=== PATIENT | male | born 1975 | race African-American/Black ===

== ENCOUNTER 2019-02-16 01:36 | Inpatient (IN) | payer MEDICAID ==
[~2019-02-16] VITALS: Ht 175.3 cm; Wt 68.4 kg
[2019-02-16] MEDS ORDERED: SOD CHLORIDE 0.9% 1,000 ML IV STA ×2 (01:45)
[2019-02-16] MEDS ORDERED: ONDANSETRON 4 MG INJ IV STA ×2 (01:45→02:51)
[2019-02-16] MEDS ORDERED: HYDROmorphONE 1 MG/ML SYG IV STA (02:51)
[2019-02-16] MEDS ORDERED: hydrALAzine 20 MG INJ IV ONE (05:30)
[2019-02-16] MEDS ORDERED: SOD CHLORIDE 0.9% 1,000 ML IV SCH (05:36)
--- NOTE | 2019-02-16 05:36 | ERD ---
ER Documentation Chief Complaint Chief Complaint NAUSEA WITH VOMITING HPI This 43-year-old male has had nausea vomiting for 4 days unable to tolerate any fluids anymore. The patient got up to go to the kitchen to get some water and he got very dizzy nearly passed out. He says he used to have cyclical vomiting syndrome due to THC use but has not used THC in 2 years. He says he has diffuse abdominal pain but did not mention this until snf through his ER work-up. He told me had no pain initially. No diarrhea. Patient feels dizzy and weak and says he has had decreased urine output the past 2 days. ROS All systems reviewed and are negative except as per history of present illness. Medications Home Meds No Active Prescriptions or Reported Meds Allergies Allergies: Coded Allergies: No Known Allergy (Unverified , 12/20/14) PMhx/Soc History of Surgery: No Anesthesia Reaction: No Hx Neurological Disorder: No Hx Respiratory Disorders: No Hx Cardiac Disorders: No Hx Psychiatric Problems: No Hx Miscellaneous Medical Probl: Yes (Gastritis) Hx Alcohol Use: No Hx Substance Use: No Hx Tobacco Use: No Smoking Status: Current every day smoker FmHx Family History: No coronary disease Physical Exam Vitals Vital Signs Date Temp Pulse Resp B/P (MAP) Pulse Ox O2 O2 Flow FiO2 Time Delivery Rate 02/16/19 16 158/112 99 Room Air 05:18 (127) 02/16/19 97.8 127 22 98/65 (76) 100 Room Air 01:46 02/16/19 97.8 131 22 96/77 (83) 100 01:42 Physical Exam Const: Well-developed, well-nourished Head: Atraumatic, normocephalic Eyes: Normal Conjunctiva, PERRLA, EOMI, normal sclera, no nystagmus ENT: Normal External Ears, Nose and Mouth, dry mucus membranes. Neck: Full range of motion. No meningismus, no lymphadenopathy. Resp: Clear to auscultation bilaterally, no wheezing, rhonchi, rales Cardio: Tachycardia, no murmurs, S1 S2 present] Abd: Soft, non tender x 4, non distended. Normal bowel sounds, no guarding or rebound, no pulsitile abdominal masses or bruits Skin: No petechiae or rashes, no ecchymosis , no maculopapular rash Back: No midline or flank tenderness Ext: No cyanosis, or edema, FROM x 4, normal inspection, neurovascularly intact x 4 Neur: Awake and alert, STR 5/5 x 4, sensation intact x 4, no focal findings, cerebellum intact Psych: Normal Mood and Affect Result Diagram: 02/16/19 0412 02/16/19 0434 Results 24 hrs Laboratory Tests Test 02/16/19 04:12 02/16/19 04:34 White Blood Count 14.9 10^3/ul Red Blood Count 5.81 10^6/ul Hemoglobin 16.1 g/dl Hematocrit 47.2 % Mean Corpuscular Volume 81.2 fl Mean Corpuscular Hemoglobin 27.7 pg Mean Corpuscular Hemoglobin Concent 34.1 g/dl Red Cell Distribution Width 13.9 % Platelet Count 387 10^3/UL Mean Platelet Volume 9.2 fl Immature Granulocytes % 0.400 % Neutrophils % 87.3 % Lymphocytes % 7.4 % Monocytes % 4.7 % Eosinophils % 0.1 % Basophils % 0.1 % Nucleated Red Blood Cells % 0.0 /100WBC Immature Granulocytes # 0.060 10^3/ul Neutrophils # 13.0 10^3/ul Lymphocytes # 1.1 10^3/ul Monocytes # 0.7 10^3/ul Eosinophils # 0.0 10^3/ul Basophils # 0.0 10^3/ul Nucleated Red Blood Cells # 0.0 10^3/ul Sodium Level 137 mmol/L Potassium Level 3.9 mmol/L Chloride Level 99 mmol/L Carbon Dioxide Level 20 mmol/L Anion Gap 18 Blood Urea Nitrogen 35 mg/dl Creatinine 3.74 mg/dl Est Glomerular Filtrat Rate mL/min 22 mL/min Glucose Level 122 mg/dl Calcium Level 8.6 mg/dl Total Bilirubin 0.5 mg/dl Direct Bilirubin 0.00 mg/dl Indirect Bilirubin 0.5 mg/dl Aspartate Amino Transf (AST/SGOT) 18 IU/L Alanine Aminotransferase (ALT/SGPT) < 6 IU/L Alkaline Phosphatase 118 IU/L Total Protein 9.3 g/dl Albumin 4.9 g/dl Globulin 4.40 g/dl Albumin/Globulin Ratio 1.11 Current Medications Medications Dose Sig/Ryann Start Time Status Last (Trade) Ordered Route PRN Stop Time Admin Dose Reason Admin Sodium 1,000 ml @ Q1H STAT 02/16/19 DC 02/16/19 Chloride 1,000 mls/hr IV 01:45 02:27 02/16/19 02:44 Ondansetron 4 mg ONCE STAT 02/16/19 DC 02/16/19 HCl (Zofran IV 01:45 02:27 Inj) 02/16/19 01:47 Sodium 1,000 ml @ Q1H STAT 02/16/19 DC 02/16/19 Chloride 1,000 mls/hr IV 01:45 02:27 02/16/19 02:44 1 mg ONCE STAT 02/16/19 DC 02/16/19 Hydromorphone IV 02:51 02:57 HCl 02/16/19 02:52 (Dilaudid) Ondansetron 4 mg ONCE STAT 02/16/19 DC 02/16/19 HCl (Zofran IV 02:51 02:57 Inj) 02/16/19 02:52 Hydralazine 10 mg ONCE ONCE 02/16/19 DC 02/16/19 HCl IV 05:30 05:26 (Apresoline) 02/16/19 05:31 Procedures/MDM EKG: Rate/Rhythm: Sinus tachycardia heart rate 127 QRS, ST, QT: NORMAL MS, QRS, QT] Impression: Sinus tachycardia Patient is elevated creatinine at 3.74 and a CO2 that is acidotic demonstrating dehydration. His blood pressure and heart rate of got better after IV fluids. He is clinic ally dehydrated. His CAT scan of the abdomen is been done is currently pending read which is taking forever. We will admit him for dehydration and intractable nausea vomiting Departure Diagnosis: Primary Impression: Dehydration Additional Impression: Vomiting Vomiting type: cyclical vomiting Vomiting Intractability: intractable Nausea presence: with nausea Qualified Codes: G43.A1 - Cyclical vomiting, intractable Condition: Stable MARY GUZMAN DO Feb 16, 2019 05:36
[2019-02-16] MEDS ORDERED: ACETAMINOPHEN 325 MG TAB PO PRN (06:00)
[2019-02-16] MEDS ORDERED: ONDANSETRON 4 MG INJ IV PRN (06:00)
[2019-02-16] MEDS ORDERED: HALOPERIDOL 5 MG INJ IV ONE (07:00)
[2019-02-16] MEDS ORDERED: HYDROmorphONE 2 MG/ML SYG IV STA (09:29)
[2019-02-16 12:13] VITALS: PULSE 119
[2019-02-16 12:51] VITALS: BP 136/91; PULSE 120; RESP 20
[2019-02-16] MEDS ORDERED: CIPROFLOXACIN 200 MG/D5W IVPB 100 ML IVPB SCH (13:00)
[2019-02-16] MEDS ORDERED: BISACODYL 10 MG SUPP PR ONE (13:00)
--- NOTE | 2019-02-16 13:08 | HP ---
Date/Time of Note Date/Time of Note DATE: 02/16/19 TIME: 13:02 Assessment/Plan VTE Prophylaxis SCD applied (from Nsg): Yes Pharmacological prophylaxis: NA/contraindicated Pharm contraindication: low risk/ambulating Lines/Catheters IV Catheter Type (from Nrsg): Saline Lock Assessment/Plan Hospital Course SUBJECTIVE: Lying in bed, feeling nauseated and having abdominal pain. OBJECTIVE: Vital signs-see below PHYSICAL EXAM: Constitutional: Adequately built,not in acute distress. HEENT: Head atraumatic and normocephalic. Eyes: Extraocular muscles intact. Anicteric sclerae. Pupils equal bilaterally, reactive to light. NECK: Supple without lymph node. CHEST: Clear and good breath sounds equally. No wheezing. No rhonchi. HEART: S1, S2. Regular rate and rhythm. ABDOMEN: Generalized tenderness to all 4 quadrants with no rebound tenderness. Abdomen soft. Bowel sounds were present. EXTREMITIES: No cyanosis, clubbing or edema. NEUROLOGIC: Alert and oriented x3. No focal deficit. No sensory deficit. PSYCHOSOCIAL: No signs of depression. INTEGUMENTARY: No open wounds. ASSESSMENT AND PLAN:43 yo M w/daily cannabis use, hernia repair sx here w/ 4-5 days duration of intractable N/Vomiting/abd pain/chills/constipation found to have colitis.. Acute colitis -Last colonoscopy unknown. -GI consult -N.p.o., IV fluids, Unasyn/Flagyl (wouldn't give cipro w/current renal fxn) -Blood cultures, inflammatory markers Acute kidney injury vs CKD -Renal ultrasound. -Avoid nephrotoxins and monitor renal function closely. -nephrology consultation Dehydration -IV fluids Leukocytosis, likely secondary to colitis -Antibiotics with anaerobic coverage, cultures to follow Cannabis use w/hx cyclic vomiting chondrome -Counseled on cessation as this also can further exaggerate N/V DVT prophylaxis: SCDs PUD prophylaxis: Pepcid Rest of the management depend on clinical course. Approximately 60 m spent on this history and physical. Patient was seen in collaboration with Dr. Medina. Result Diagram: 02/16/19 0412 02/16/19 0434 Results 24hrs Laboratory Tests Test 02/16/19 04:12 02/16/19 04:34 White Blood Count 14.9 H Red Blood Count 5.81 Hemoglobin 16.1 Hematocrit 47.2 Mean Corpuscular Volume 81.2 L Mean Corpuscular Hemoglobin 27.7 L Mean Corpuscular Hemoglobin Concent 34.1 Red Cell Distribution Width 13.9 Platelet Count 387 Mean Platelet Volume 9.2 Immature Granulocytes % 0.400 Neutrophils % 87.3 H Lymphocytes % 7.4 L Monocytes % 4.7 Eosinophils % 0.1 Basophils % 0.1 Nucleated Red Blood Cells % 0.0 Immature Granulocytes # 0.060 H Neutrophils # 13.0 H Lymphocytes # 1.1 Monocytes # 0.7 Eosinophils # 0.0 Basophils # 0.0 Nucleated Red Blood Cells # 0.0 Sodium Level 137 Potassium Level 3.9 Chloride Level 99 Carbon Dioxide Level 20 L Anion Gap 18 H Blood Urea Nitrogen 35 H Creatinine 3.74 H Est Glomerular Filtrat Rate mL/min 22 L Glucose Level 122 Calcium Level 8.6 Total Bilirubin 0.5 Direct Bilirubin 0.00 Indirect Bilirubin 0.5 Aspartate Amino Transf (AST/SGOT) 18 Alanine Aminotransferase (ALT/SGPT) < 6 L Alkaline Phosphatase 118 Total Protein 9.3 H Albumin 4.9 Globulin 4.40 H Albumin/Globulin Ratio 1.11 HPI/ROS Admit Date/Time Admit Date/Time Feb 16, 2019 at 05:37 Hx of Present Illness This is a 43-year-old male with cannabis abuse, hernia repair surgery, here with 4 days of intractable nausea/multiple episodes of nonbilious/nonbloody vomiting. Patient also had subjective chills at home. Patient also had diffuse abdominal pain. He also reported constipation and his last bowel movement was 5 days ago. Patient was not able to keep anything down secondary to vomiting. Patient also smokes marijuana on a daily basis. Patient denied any recent travel or contact with sick people. Patient denied chest pain, palpitation, shortness of breath, diarrhea, hematemesis, hematochezia, loss of consciousness, numbness, tingling, speech difficulties, vision changes, or other constitutional symptoms. In the emergency room, patient was noted with a white count 14,900, BUN 35, creatinine 3.74. Abdominal CT showed mild bowel wall thickening in the descending and proximal sigmoid colon which could represent colitis, either infectious or inflammatory. There is also moderate stool seen in the ascending colon. ROS A 12 point review of system was assessed and is negative other than what is mentioned in HPI. PMH/Family/Social Past Medical History See HPI Medications Current Medications Ondansetron HCl (Zofran Inj) 4 mg ER BRIDGE PRN IV NAUSEA/VOMITING; Start 02/16/19 at 06:00; Stop 02/17/19 at 05:59 Acetaminophen (Tylenol Tab) 650 mg ER BRIDGE PRN PO .MILD PAIN 1-3 OR TEMP; Start 02/16/19 at 06:00; Stop 02/17/19 at 05:59 Ciprofloxacin/ Dextrose 100 ml @ 100 mls/hr Q12 IVPB ; Start 02/16/19 at 13:00; Status UNV Metronidazole 100 ml @ 100 mls/hr Q8 IVPB ; Start 02/16/19 at 14:00; Status UNV Bisacodyl (Dulcolax Supp) 10 mg ONCE ONCE AK ; Start 02/16/19 at 13:00; Stop 02/16/19 at 13:01; Status UNV Sodium Chloride 1,000 ml @ 125 mls/hr Q8H IV ; Start 02/16/19 at 13:00; Status UNV Coded Allergies: No Known Allergy (Unverified , 02/16/19) Past Surgical History See HPI Social History Smokes marijuana daily. Denies alcohol or substance abuse. Smoking Status: Current every day smoker Exam/Review of Systems Vital Signs Vitals Vital Signs Date Temp Pulse Resp B/P (MAP) Pulse Ox O2 O2 Flow FiO2 Time Delivery Rate 02/16/19 98.7 120 20 136/91 97 12:51 (106) 02/16/19 Room Air 11:17 MILAGROS LENTZ NP Feb 16, 2019 13:08
[2019-02-16 13:10] VITALS: Ht 175.3 cm; Wt 68.4 kg
--- NOTE | 2019-02-16 15:14 | CONS ---
Assessment/Plan Assessment/Plan Hospital Course (Demo Recall) Summary Assessment and Plan: Assessment: Colitis-infectious versus inflammatory Persistent Nausea/vomiting -Cyclic vomiting syndrome versus gastritis versus PUD versus other Abdominal pain Chronic marijuana use Unintentional weight loss 15 pounds x 1 to 2 weeks Renal insufficiency Plan: Clear liquid ESR/CRP IBD panel EGD/colonoscopy tomorrow Endoscopy - risks/benefits/alternatives/indications of procedure and sedation/anesthesia discussed with patient who states understanding and gives informed consent to proceed. Patient seen in collaboration with Dr. Hall CC: ELVIRA HALL MD ; Consultation Date/Type/Reason Admit Date/Time Feb 16, 2019 at 05:37 Date of Consultation: Feb 16, 2019 Type of Consult Gastroenterology Reason for Consultation Colitis Date/Time of Note DATE: 02/16/19 TIME: 15:12 Hx of Present Illness A 43-year-old male with past medical history of hernia repair surgery, chronic cannabinoid use who presented to the hospital with complaints of intractable nausea and vomiting abdominal pain with subjective chills. Patient states symptoms began about 4 to 5 days ago nothing seemed to make symptoms better or worse. He denies NSAID use, antibiotic recent antibiotic use, recent travel, or recent contact with sickness that he is aware of. Here in the ED a CAT scan abdomen pelvis without contrast was obtained impression states the following. There is mild bowel wall thickening in the descending and proximal sigmoid colon which could represent colitis, either infectious or inflammatory. There is moderate stool seen in the ascending colon. Small fat-containing left inguinal hernia. Additionally labs were obtained there is a mild leukocytosis WBC of 14.9 although hemoglobin is stable he does have microcytic indices with elevated neutrophils and low lymphocytes. Patient's creatinine and BUN are both elevated. He has been started empirically on antibiotics and is currently receiving normal saline. Patient states he has never had a colonoscopy his last upper endoscopy was about a year ago unclear of results. Patient also notes a 15 pound weight loss over the past 1 to 2 weeks he denies overt signs of GI bleed including melena, hematochezia or hematemesis. Does continue to complain of epigastric and lower abdominal pain. Discussed plan for EGD colonoscopy reviewed risk/benefits of both procedure and sedation patient verbalized understanding is agreeable to both procedures tomorrow. Review of Systems: A 12 system, review was conducted and is negative except as noted in the HPI or here. Past Medical History Home Meds No Active Prescriptions or Reported Meds Medications Current Medications Ondansetron HCl (Zofran Inj) 4 mg ER BRIDGE PRN IV NAUSEA/VOMITING; Start 02/16/19 at 06:00; Stop 02/17/19 at 05:59 Acetaminophen (Tylenol Tab) 650 mg ER BRIDGE PRN PO .MILD PAIN 1-3 OR TEMP; Start 02/16/19 at 06:00; Stop 02/17/19 at 05:59 Metronidazole 100 ml @ 100 mls/hr Q8 IVPB ; Start 02/16/19 at 14:00 Sodium Chloride 1,000 ml @ 125 mls/hr Q8H IV ; Start 02/16/19 at 13:00 Ampicillin Sodium/ Sulbactam Sodium 100 ml @ 100 mls/hr Q12 IVPB ; Start 02/16/19 at 14:30 Allergies: Coded Allergies: No Known Allergy (Unverified , 02/16/19) Social History Smoking Status: Current every day smoker Exam/Review of Systems Exam Vitals Vital Signs Date Temp Pulse Resp B/P (MAP) Pulse Ox O2 O2 Flow FiO2 Time Delivery Rate 02/16/19 98.7 120 20 136/91 97 12:51 (106) 02/16/19 Room Air 11:17 Exam PHYSICAL EXAMINATION: GENERAL: Well developed, well nourished, alert & oriented x 3, in no acute distress SKIN: No lesions. HEAD: Normocephalic, atraumatic, no tenderness. EYES: Pupils equal reactive to light and accommodation, no discharge. EARS/NOSE AND THROAT: Ears normal, nose normal. NECK: Supple, no masses CHEST: Inspection within normal limits. CARDIOVASCULAR: Heart: Regular rate and rhythm RESPIRATORY: Lungs clear to auscultation GASTROINTESTINAL AND LIVER: Abdomen: Soft, non tenderness, non-distended, no hernias, no masses, no organomegaly, no ascites, no guarding, no rebound tenderness, normoactive bowel sounds. Rectal: Deferred. GENITOURINARY: Male genitalia within normal limits. EXTREMITIES: No cyanosis, clubbing or edema. Results Result Diagram: 02/16/19 0412 02/16/19 0434 Results 24hrs Laboratory Tests Test 02/16/19 04:12 02/16/19 04:34 White Blood Count 14.9 H Red Blood Count 5.81 Hemoglobin 16.1 Hematocrit 47.2 Mean Corpuscular Volume 81.2 L Mean Corpuscular Hemoglobin 27.7 L Mean Corpuscular Hemoglobin Concent 34.1 Red Cell Distribution Width 13.9 Platelet Count 387 Mean Platelet Volume 9.2 Immature Granulocytes % 0.400 Neutrophils % 87.3 H Lymphocytes % 7.4 L Monocytes % 4.7 Eosinophils % 0.1 Basophils % 0.1 Nucleated Red Blood Cells % 0.0 Immature Granulocytes # 0.060 H Neutrophils # 13.0 H Lymphocytes # 1.1 Monocytes # 0.7 Eosinophils # 0.0 Basophils # 0.0 Nucleated Red Blood Cells # 0.0 Sodium Level 137 Potassium Level 3.9 Chloride Level 99 Carbon Dioxide Level 20 L Anion Gap 18 H Blood Urea Nitrogen 35 H Creatinine 3.74 H Est Glomerular Filtrat Rate mL/min 22 L Glucose Level 122 Calcium Level 8.6 Total Bilirubin 0.5 Direct Bilirubin 0.00 Indirect Bilirubin 0.5 Aspartate Amino Transf (AST/SGOT) 18 Alanine Aminotransferase (ALT/SGPT) < 6 L Alkaline Phosphatase 118 Total Protein 9.3 H Albumin 4.9 Globulin 4.40 H Albumin/Globulin Ratio 1.11 Medications Medication Current Medications Ondansetron HCl (Zofran Inj) 4 mg ER BRIDGE PRN IV NAUSEA/VOMITING; Start 02/16 at 06:00; Stop 02/17/19 at 05:59 Acetaminophen (Tylenol Tab) 650 mg ER BRIDGE PRN PO .MILD PAIN 1-3 OR TEMP; Start 02/16/19 at 06:00; Stop 02/17/19 at 05:59 Metronidazole 100 ml @ 100 mls/hr Q8 IVPB ; Start 02/16/19 at 14:00 Sodium Chloride 1,000 ml @ 125 mls/hr Q8H IV ; Start 02/16/19 at 13:00 Ampicillin Sodium/ Sulbactam Sodium 100 ml @ 100 mls/hr Q12 IVPB ; Start 02/16/19 at 14:30 SANDY RUIZ Feb 16, 2019 15:14
[2019-02-16 15:19] VITALS: BP 150/86; PULSE 117; RESP 20
[2019-02-16] MEDS: metroNIDAZOLE 500 MG/NS (PMX) 100 ML IVPB SCH ×2 (15:46→22:04)
[2019-02-16] MEDS: SOD CHLORIDE 0.9% 1,000 ML IV SCH ×2 (15:46→22:04)
[2019-02-16] MEDS: AMPICILLIN/SULB 3 GM/NS (PMX) 100 ML IVPB SCH ×2 (15:57→22:52)
[2019-02-16 16:00] VITALS: PULSE 120
[2019-02-16] MEDS ORDERED: BISACODYL (EC) 5 MG TAB PO ONE (16:00)
[2019-02-16] MEDS: morphine 2 MG INJ IV PRN (16:59)
[2019-02-16] MEDS ORDERED: PEG/ELECTROLYTES 4L BTL PO ONE (17:00)
--- NOTE | 2019-02-16 18:18 | PREAC ---
Date/Time of Note Date/Time of Note DATE: 02/16/19 TIME: 18:17 Anesthesia Eval and Record Evaluation Time Pre-Procedure Interview DATE: 02/16/19 TIME: 18:17 Age 43 Sex male NPO: 8 hrs Preoperative diagnosis nauseated and having abdominal pain. Planned procedure EGD / Colonoscopy Past Medical History Past Medical History: Includes Renal: JOHN Recreational drugs: Marijuana Surgery & Anesthesia Issues No known issue Meds Anticoagulation: No Beta Srinivasan within 24 hr: No Reason Beta Srinivasan not given: Pt. not on B-Srinivasan No Active Prescriptions or Reported Meds Current Medications Ondansetron HCl (Zofran Inj) 4 mg ER BRIDGE PRN IV NAUSEA/VOMITING; Start 02/16/19 at 06:00; Stop 02/17/19 at 05:59 Acetaminophen (Tylenol Tab) 650 mg ER BRIDGE PRN PO .MILD PAIN 1-3 OR TEMP; Start 02/16/19 at 06:00; Stop 02/17/19 at 05:59 Metronidazole 100 ml @ 100 mls/hr Q8 IVPB Last administered on 02/16/19at 15:46; Admin Dose 100 MLS/HR; Start 02/16/19 at 14:00 Sodium Chloride 1,000 ml @ 125 mls/hr Q8H IV Last administered on 02/16/19at 15:46; Admin Dose 125 MLS/HR; Start 02/16/19 at 13:00 Ampicillin Sodium/ Sulbactam Sodium 100 ml @ 100 mls/hr Q12 IVPB Last administered on 02/16/19at 15:57; Admin Dose 100 MLS/HR; Start 02/16/19 at 14:30 Polyethylene Glycol/ Electrolytes (Golytely) 2,000 ml 2nd Dose (GI Prep) ONCE PO ; Start 02/17/19 at 06:00; Stop 02/17/19 at 06:01 Bisacodyl (Dulcolax) 10 mg 2nd Dose (GI Prep) ONCE PO ; Start 02/17/19 at 07:30; Stop 02/17/19 at 07:31 Morphine Sulfate (morphine) 2 mg Q4H PRN IV SEVERE PAIN LEVEL 7-10 Last administered on 02/16/19at 16:59; Admin Dose 2 MG; Start 02/16/19 at 16:45 Meds reviewed: Yes Allergies Coded Allergies: No Known Allergy (Unverified , 02/16/19) Allergies Reviewed: Yes Labs/Studies Labs Reviewed: Reviewed by anesthesiologist Result Diagram: 02/16/19 0412 02/16/19 0434 Laboratory Tests 02/16/19 04:12 02/16/19 04:34 test: N/A Pre-procedure Exam Last vitals Vital Signs Date Temp Pulse Resp B/P (MAP) Pulse Ox O2 O2 Flow FiO2 Time Delivery Rate 02/16/19 98.2 117 20 150/86 98 15:19 (107) 02/16/19 Room Air 11:17 Airway: Adequate mouth opening Mallampati: Mallampati II Teeth: Normal Lung: Normal Heart: Normal ASA Physical Status ASA physical status: 3 Emergency: None Planned Anesthetic General/MAC: MAC Pre-operative Attestations Prior to commencing anesthesia and surgery, the patient was re-evaluated, there was verification of: *The patient's identity *The results of appropriate recent lab work and preoperative vital signs *The above evaluation not changing prior to induction *Anesthetic plan, risk benefits, alternative and complications discussed with patient/family; questions answered; patient/family understands, accepts and wishes to proceed. DEE COSTA Feb 16, 2019 18:18
[2019-02-16] MEDS ORDERED: morphine 2 MG INJ IV STA (19:11)
--- NOTE | 2019-02-16 19:19 | CONS ---
DATE OF ADMISSION: 02/16/2019 DATE OF CONSULTATION: 02/16/2019 TYPE OF CONSULTATION: Nephrology. REASON FOR CONSULTATION: Acute kidney injury, chronic kidney disease. REQUESTING PHYSICIAN: Rina Roberson NP was the nurse practitioner requesting consult. HISTORY OF PRESENT ILLNESS: This is a 43-year-old male with a past medical history of probable chron ic kidney disease, history of cannabis use, who presents to [facility] with 4 days of intractable nausea, vomiting with multiple episodes of nonbilious, nonbloody emesis. The patient states he was in his usual state of health until approximately 4 or 5 days ago when he started having diffuse abdominal pain. The patient also reports being constipated. As a result of these symptoms, he was brought into the emergency room for evaluation. Upon arrival, patient had a CT scan of the a bdomen and pelvis which showed bowel wall thickening consistent with possible colitis. The patient w as placed on IV fluids, antibiotic therapy, admitted to telemetry for evaluation. In terms of patient's renal history, the patient stated in the past, he has had episodes of acute kid blue injury which he has recovered to IV hydration. The patient denies any recent bouts of hematuria, any rashes, any hemoptysis, hematemesis or hematochezia. PAST MEDICAL HISTORY: History of acute kidney injury, history of cannabis use. PAST SURGICAL HISTORY: Status post hernia repair. FAMILY HISTORY: No family history of kidney disease. SOCIAL HISTORY: Positive for cannabis use. MEDICATIONS: The patient's medications have been reviewed. ALLERGIES: Have been reviewed. REVIEW OF SYSTEMS: A 14-point review of systems conducted. Pertinent positives as stated in the HPI , otherwise negative. PHYSICAL EXAMINATION: VITAL SIGNS: Blood pressure is 150/86, respirations 20, pulse 117, temperature 98.2. HEENT: Head is normocephalic. NECK: Supple. HEART: Tachycardic. LUNGS: Show diminished breath sounds at the base. ABDOMEN: Soft, nontender to palpation without rebound or guarding. EXTREMITIES: Negative for clubbing, cyanosis, no edema. DERMATOLOGIC: No rashes. MUSCULOSKELETAL: No joint effusions. NEUROLOGIC: No change in exam. LABORATORY DATA: Has been reviewed. IMAGING STUDIES: Have been reviewed. ASSESSMENT AND PLAN: This is a 43-year-old male who presents with: 1. Nonoliguric acute kidney injury with previous baseline creatinine of 1.5 mg/dL. Etiology of acut e kidney injury is likely secondary to hemodynamics, volume depletion. Possibility of interstitial n ephritis or tubular injury is a consideration. Lower suspicion for acute glomerulonephritis or vascu litis given the patient's initial clinical presentation. Plan is to do a full evaluation. We will c heck UA with microanalysis, check urine electrolytes. We will check a renal ultrasound to evaluate r enal parenchyma and rule out obstruction. We would agree with continued aggressive IV hydration, ant ibiotic therapy. Otherwise, continue supportive care, renally dose meds, avoid nephrotoxins. 2. Mineral bone disorder. Monitor calcium and phosphorus levels. 3. Metabolic acidosis secondary to acute kidney injury. The patient has a high anion gap acidosis. We will check a lactic acid level and monitor closely. Consider checking an ABG. 4. Acute colitis. Etiology is unclear, possible infectious versus other. Continue current antibiot ic therapy. Follow up with GI. 5. Leukocytosis, systemic inflammatory response syndrome, possible sepsis secondary to colitis. Con tinue current broad spectrum antibiotics. 6. History of cannabis use with cyclic vomiting syndrome. Continue to monitor. 7. Tachyarrhythmia. Continue to monitor. Likely due to pain, sepsis. 8. Gastrointestinal and deep venous thrombosis prophylaxis. Thank you, Rina, for this interesting consult. It will be a pleasure to follow the patient with you throughout the hospital course. Dictated By: RICHARD COOPER DO NR/NTS Conf#: [id number] DID#: [id number] CC: JB JOVEL MD;*End*
[2019-02-16 20:00] VITALS: BP 137/86; PULSE 103; PULSE 124; RESP 19
[2019-02-17] VITALS (19 sets, daily range): BP systolic 117–180; BP diastolic 67–104; PULSE 84–127; RESP 11–90
[2019-02-17] MEDS: morphine 2 MG INJ IV PRN ×3 (03:51→21:36)
[2019-02-17] MEDS ORDERED: PEG/ELECTROLYTES 4L BTL PO ONE (06:00)
[2019-02-17] MEDS: metroNIDAZOLE 500 MG/NS (PMX) 100 ML IVPB SCH ×3 (06:05→22:48)
[2019-02-17] MEDS ORDERED: BISACODYL (EC) 5 MG TAB PO ONE (07:30)
[2019-02-17] MEDS: SOD CHLORIDE 0.9% 1,000 ML IV SCH ×2 (07:52→18:19)
[2019-02-17] MEDS ORDERED: POTASSIUM CHLORIDE (SR) 20 MEQ TAB PO STA (09:26)
--- NOTE | 2019-02-17 09:38 | PN ---
DATE: 02/17/2019 SUBJECTIVE: The patient is currently stable pending EGD, colonoscopy. No other events noted overnig ht. No hemoptysis, hematemesis or hematochezia. OBJECTIVE: VITAL SIGNS: Blood pressure is 146/93, respirations 20, pulse 106, temperature 98.2. HEENT: Head is normocephalic. NECK: Supple. HEART: Regular rate. LUNGS: Show diminished breath sounds at the base. ABDOMEN: Soft, nontender to palpation without rebound or guarding. EXTREMITIES: Negative for clubbing, cyanosis, no edema. DERMATOLOGIC: No rashes. MUSCULOSKELETAL: No joint effusion. NEUROLOGIC: No change in exam. MEDICATIONS: Reviewed. LABORATORY DATA: Reviewed. IMAGING STUDIES: Reviewed. ASSESSMENT AND PLAN: 1. Nonoliguric acute kidney injury with previous baseline creatinine of 1.5 mg/dL. Etiology of acut e kidney injury is secondary to volume depletion, sepsis. The patient's renal function has improved with IV fluids. At this point, continue current treatment plan, supportive care, renally dose all me dications. 2. Hypokalemia. Replete with potassium chloride. 3. Mild anemia. Monitor hemoglobin and hematocrit levels. 4. Mineral bone disorder, monitor calcium and phosphorus levels. The patient's vitamin D levels are low, we will replete with vitamin D supplementation. 5. Acute colitis. The patient is pending colonoscopy. 6. Systemic inflammatory response syndrome, sepsis. Continue antibiotic regimen. 7. History of cannabis use. 8. Tachyarrhythmia. Dictated By: RICHARD COOPER DO NR/NTS Conf#: [id number] DID#: [id number] CC: JB JOVEL MD; RICHARD COOPER DO;*EndCC*
[2019-02-17] MEDS: AMPICILLIN/SULB 3 GM/NS (PMX) 100 ML IVPB SCH ×2 (09:42→22:48)
[2019-02-17] MEDS ORDERED: POTASSIUM CHLORIDE 100 ML IVPB ONE (10:30)
[2019-02-17] MEDS: CHOLECALCIFEROL 1,000 UNIT TAB PO SCH (10:37)
--- NOTE | 2019-02-17 12:23 | PN ---
Date/Time of Note Date/Time of Note DATE: 02/17/19 TIME: 12:17 Assessment/Plan VTE Prophylaxis Risk score (from Ns)>0 risk: 1 SCD applied (from Ns): Yes Pharmacological prophylaxis: NA/contraindicated Pharm contraindication: low risk/ambulating Lines/Catheters IV C[facility]ter Type ([facility] Peripheral IV Urinary Cath still in place: No Assessment/Plan Hospital Course SUBJECTIVE: for EGD/colonoscopy examination today. OBJECTIVE: Vital signs-see below PHYSICAL EXAM: Constitutional: Adequately built,not in acute distress. HEENT: Head atraumatic and normocephalic. Eyes: Extraocular muscles intact. Anicteric sclerae. Pupils equal bilaterally, reactive to light. NECK: Supple without lymph node. CHEST: Clear and good breath sounds equally. No wheezing. No rhonchi. HEART: S1, S2. Regular rate and rhythm. ABDOMEN: Generalized tenderness to all 4 quadrants with no rebound tenderness. Abdomen soft. Bowel sounds were present. EXTREMITIES: No cyanosis, clubbing or edema. NEUROLOGIC: Alert and oriented x3. No focal deficit. No sensory deficit. PSYCHOSOCIAL: No signs of depression. INTEGUMENTARY: No open wounds. ASSESSMENT AND PLAN:43 yo M w/daily cannabis use, hernia repair sx here w/ 4-5 days duration of intractable N/Vomiting/abd pain/chills/constipation found to have colitis.. Acute colitis -EGD/colonoscopy today. -Continue n.p.o., IV fluids, change Unasyn to Cipro. Renal function normal. Continue Flagyl. -Follow-up stool studies Acute kidney injury , likely secondary to colitis -Resolved with IV fluids -Avoid nephrotoxins and monitor renal function closely. -Appreciate nephrology follow-up Dehydration -cont. IV fluids Leukocytosis, likely secondary to colitis -Continue antimicrobials and follow-up stool studies and blood cultures. Cannabis use w/hx cyclic vomiting chondrome -Counseled on cessation as this also can further exaggerate N/V Elevated PTH with normocalcemia -Follow-up vitamin D levels. Add ionized calcium level. -Spoke with Dr. Bowers, health and wellness instructor who will review the case. DVT prophylaxis: SCDs PUD prophylaxis: Pepcid Disposition: For colonoscopy today. Follow-up GI recommendations. Patient was seen in collaboration with Dr. Medina. Result Diagram: 02/17/1904 02/17/19 0604 Results 24hrs Laboratory Tests Test 02/16/19 14:34 02/16/19 14:36 02/17/19 06:04 Erythrocyte Sedimentation Rate 10 C-Reactive Protein < 0.5 Parathyroid Hormone 150.9 H Vitamin D 1,25-Dihydroxy 20.6 L White Blood Count 13.8 H Red Blood Count 4.12 #L Hemoglobin 11.6 #L Hematocrit 34.3 #L Mean Corpuscular Volume 83.3 Mean Corpuscular Hemoglobin 28.2 L Mean Corpuscular Hemoglobin Concent 33.8 Red Cell Distribution Width 14.0 Platelet Count 303 # Mean Platelet Volume 9.2 Immature Granulocytes % 0.500 H Neutrophils % 75.4 Lymphocytes % 12.4 L Monocytes % 9.6 Eosinophils % 1.7 Basophils % 0.4 Nucleated Red Blood Cells % 0.0 Immature Granulocytes # 0.070 H Neutrophils # 10.4 H Lymphocytes # 1.7 Monocytes # 1.3 H Eosinophils # 0.2 Basophils # 0.1 Nucleated Red Blood Cells # 0.0 Prothrombin Time 14.2 Prothrombin Time Ratio 1.1 INR International Normalized Ratio 1.09 Sodium Level 136 Potassium Level 3.3 L Chloride Level 101 Carbon Dioxide Level 24 Anion Gap 11 # Blood Urea Nitrogen 22 #H Creatinine 1.07 # Est Glomerular Filtrat Rate mL/min > 60 Glucose Level 94 Calcium Level 8.0 L Phosphorus Level 2.4 L Magnesium Level 2.0 Exam/Review of Systems Exam Vitals Vital Signs Date Temp Pulse Resp B/P (MAP) Pulse Ox O2 O2 Flow FiO2 Time Delivery Rate 02/17/19 97.8 104 20 134/82 98 11:21 (99) 02/16/19 Room Air 11:17 Intake and Output 02/16/19 02/16/19 02/17/19 1515:00 23:00 07:00 IntakeIntake Total 2130 ml 900 ml BalanceBalance 2130 ml 900 ml Results Results 24hrs Laboratory Tests Test 02/16/19 14:34 02/16/19 14:36 02/17/19 06:04 Erythrocyte Sedimentation Rate 10 C-Reactive Protein < 0.5 Parathyroid Hormone 150.9 H Vitamin D 1,25-Dihydroxy 20.6 L White Blood Count 13.8 H Red Blood Count 4.12 #L Hemoglobin 11.6 #L Hematocrit 34.3 #L Mean Corpuscular Volume 83.3 Mean Corpuscular Hemoglobin 28.2 L Mean Corpuscular Hemoglobin Concent 33.8 Red Cell Distribution Width 14.0 Platelet Count 303 # Mean Platelet Volume 9.2 Immature Granulocytes % 0.500 H Neutrophils % 75.4 Lymphocytes % 12.4 L Monocytes % 9.6 Eosinophils % 1.7 Basophils % 0.4 Nucleated Red Blood Cells % 0.0 Immature Granulocytes # 0.070 H Neutrophils # 10.4 H Lymphocytes # 1.7 Monocytes # 1.3 H Eosinophils # 0.2 Basophils # 0.1 Nucleated Red Blood Cells # 0.0 Prothrombin Time 14.2 Prothrombin Time Ratio 1.1 INR International Normalized Ratio 1.09 Sodium Level 136 Potassium Level 3.3 L Chloride Level 101 Carbon Dioxide Level 24 Anion Gap 11 # Blood Urea Nitrogen 22 #H Creatinine 1.07 # Est Glomerular Filtrat Rate mL/min > 60 Glucose Level 94 Calcium Level 8.0 L Phosphorus Level 2.4 L Magnesium Level 2.0 Medications Medication Current Medications Metronidazole 100 ml @ 100 mls/hr Q8 IVPB Last administered on 02/17/19 06:05; Admin Dose 100 MLS/HR; Start 02/16/19 at 14:00 Sodium Chloride 1,000 ml @ 50 mls/hr Q20H IV Last administered on 02/17/19 07:52; Admin Dose 125 MLS/HR; Start 02/16/19 at 13:00 Ampicillin Sodium/ Sulbactam Sodium 100 ml @ 100 mls/hr Q12 IVPB Last administered on 02/17/19 09:42; Admin Dose 100 MLS/HR; Start 02/16/19 at 14:30 Morphine Sulfate (morphine) 2 mg Q4H PRN IV SEVERE PAIN LEVEL 7-10 Last administered on 02/17/19 03:51; Admin Dose 2 MG; Start 02/16/19 at 16:45 Cholecalciferol (Vitamin D) 1,000 unit DAILY PO Last administered on 02/17/19 10:37; Admin Dose 1,000 UNIT; Start 02/17/19 at 09:30 MILAGROS LENTZ NP Feb 17, 2019 12:23
[2019-02-17] MEDS ORDERED: LACTOBACILLUS RHAMNOSUS CAP PO SCH (13:00)
[2019-02-17] MEDS ORDERED: CALCITRIOL 1 MCG INJ IV ONE (14:30)
[2019-02-17] MEDS ORDERED: ERGOCALCIFEROL (8000 UNITS/ML PO SYG) PO ONE (14:30)
--- NOTE | 2019-02-17 18:10 | QN ---
Documentation Comment This is a quick note pending more formalized consultation. I was asked to see this gentleman due to his having had an elevated parathyroid hormone level. He did come in dehydrated with sepsis and acute renal insufficiency. At that time the hat blocking machine operator ordered parathyroid hormone levels. Please note that at the time of this he had a serum albumin 4.9, a serum calcium of 8.6 and is of vitamin D deficiency. These tests are being repeated but his ionized calcium was normal. As such I believe this is appropriate physiologic secondary hyperparathyroidism driven by renal insufficiency, modest hypocalcemia, and vitamin D deficiency. The parathyroid hormone's relationship to the serum calcium level is an inverse or brenda totter relationship. Calcium is low the parathyroid hormone should be high. If the vitamin D is also low the parathyroid hormone should be high and if the renal dysfunction is present the parathyroid hormone should be even higher. Since this patient's renal function is resolving nicely with hydration, we are replacing the vitamin D deficiency, there is no calcium disturbances especially with ionized calcium I feel before we invested the money and a formalized detailed endocrinology consult we will repeat the labs and see where we are. Respectfully BETZAIDA Gonzalez MD Feb 17, 2019 18:10
[2019-02-17] MEDS ORDERED: PROPOFOL 40 ML ONE (18:15)
--- NOTE | 2019-02-17 18:26 | HPN ---
Date/Time of Note Date/Time of Note DATE: 02/17/19 TIME: 18:25 Interval H&P Admission Note Pt. seen H&P reviewed: No system changes ELVIRA KLEIN MD Feb 17, 2019 18:26
--- NOTE | 2019-02-17 18:41 | PAC ---
Date/Time of Note Date/Time of Note DATE: 02/17/19 TIME: 18:41 Post-Anesthesia Notes Post-Anesthesia Note Last documented vital signs Vital Signs Date Temp Pulse Resp B/P (MAP) Pulse Ox O2 O2 Flow FiO2 Time Delivery Rate 02/17/19 123 16:01 02/17/19 98.0 91 20 168/100 100 18:44 (122) 02/16/19 Room Air 11:17 Activity: WNL Respiratory function: WNL Cardiovascular function: WNL Mental status: Baseline Pain reasonably controlled: Yes Hydration appropriate: Yes Nausea/Vomiting absent: Yes ESEQUIEL RUVALCABA MD Feb 17, 2019 18:41
[2019-02-17] MEDS ORDERED: PROPOFOL 20 ML ONE (18:52)
[2019-02-17] MEDS ORDERED: hydrALAzine 20 MG INJ IV PRN (20:30)
[2019-02-17] MEDS ORDERED: ONDANSETRON 4 MG INJ IV PRN (20:30)
[2019-02-17] MEDS ORDERED: HYDROmorphONE 1 MG/ML SYG IV ONE (23:30)
[2019-02-18] VITALS (10 sets, daily range): BP systolic 118–156; BP diastolic 76–102; PULSE 79–102; RESP 18–19
[2019-02-18] MEDS: SOD CHLORIDE 0.9% 1,000 ML IV SCH (03:24)
[2019-02-18] MEDS ORDERED: PANTOPRAZOLE (EC) 40 MG TAB PO SCH (06:00)
[2019-02-18] MEDS: metroNIDAZOLE 500 MG/NS (PMX) 100 ML IVPB SCH ×2 (06:33→13:13)
[2019-02-18] MEDS: CHOLECALCIFEROL 1,000 UNIT TAB PO SCH (08:15)
[2019-02-18] MEDS: morphine 2 MG INJ IV PRN (08:15)
[2019-02-18] MEDS: AMPICILLIN/SULB 3 GM/NS (PMX) 100 ML IVPB SCH (08:15)
[2019-02-18] MEDS ORDERED: POTASSIUM CHLORIDE (SR) 20 MEQ TAB PO STA (08:40)
--- NOTE | 2019-02-18 08:53 | PN ---
DATE: 02/18/2019 SUBJECTIVE: The patient is stable. No events overnight. The patient continues to have abdominal pa in, nausea. OBJECTIVE: VITAL SIGNS: Blood pressure is 119/76, pulse 80, respiration 18, temperature 98.4. HEENT: Head is normocephalic. NECK: Supple. HEART: Regular rate. LUNGS: Show diminished breath sounds at the base. ABDOMEN: Soft, nontender to palpation. No rebound or guarding. EXTREMITIES: Negative for clubbing, cyanosis, no edema. DERMATOLOGIC: No rashes. MUSCULOSKELETAL: No joint effusion. NEUROLOGIC: No change in exam. MEDICATIONS: The patient's medications have been reviewed. LABORATORY DATA: Has been reviewed. IMAGING STUDIES: Have been reviewed. ASSESSMENT AND PLAN: 1. Nonoliguric acute kidney injury. Etiology of acute kidney injury is secondary to hemodynamics, v olume depletion. The patient's renal function has improved with IV fluids. Plan is to discontinue I V hydration. Will continue supportive care, renally dose all meds, monitor closely. 2. Hypokalemia and hypomagnesemia. We will continue to monitor and replete. 3. Mild anemia. Monitor hemoglobin and hematocrit levels. 4. Mineral bone disorder. Monitor calcium and phosphorus levels. Continue to monitor. Continue vi tamin D supplementation. 5. Acute colitis. The patient is status post EGD which showed evidence of gastritis. Continue to m onitor. Follow up with GI. 6. SIRS, sepsis. Continue antibiotic therapy. 7. History of cannabis use. 8. Tachyarrhythmia. Dictated By: RICHARD LAI/NTS Conf#: [id number] DID#: [id number] CC: JB JOVEL MD;*EndCC*
[2019-02-18] MEDS ORDERED: NEUTRA-PHOS 250 MG PACKET PO ONE (09:00)
--- NOTE | 2019-02-18 12:48 | PDOCDIS ---
Discharge Instructions CONDITION [id number] Patient Condition: [id number] Stable HOME CARE INSTRUCTIONS: [id number] Diet Instructions: Udtty7o Regular Khzal2Md Your diet recommendation is: [id number] High Fiber diet FOLLOW UP/APPOINTMENTS Follow-up Plan Follow-up with primary care physician in 1 week. Follow-up with 's office to obtain biopsy result. Dwaine Hall MD Specialty Gastroenterology Comments Office Address [address] [address] Office Eat a high-fiber diet. MILAGROS LENTZ NP Feb 18, 2019 12:48
[2019-02-18] MEDS ORDERED: METR-122 PO (13:01)
[2019-02-18] MEDS ORDERED: PANT40TA4 PO (13:01)
[2019-02-18] MEDS ORDERED: CIPR500T4 PO (13:01)
--- NOTE | 2019-02-18 13:02 | DS ---
Date/Time of Note Date/Time of Note DATE: 02/18/19 TIME: 13:02 Discharge Summary Admission/Discharge Info Admit Date/Time Feb 16, 2019 at 05:37 Discharge Date/Time Discharge Diagnosis Acute colitis,likely infectious.stable Acute kidney injury , likely secondary to colitis.resolved Dehydration SIRS, likely secondary to colitis.resolved Cannabis use w/hx cyclic vomiting chondrome Secondary hyperparathyroidism Patient Condition: Stable Consults DR.SUCHOV HUSSEIN Procedures 02 16 2019: CT abdomen and pelvis: IMPRESSION: 1. There is mild bowel wall thickening in the descending and proximal sigmoid colon which could represent colitis, either infectious or inflammatory. 2. There is moderate stool seen in the ascending colon. 3. Small fat-containing left inguinal hernia. 02/17/2019: Colonoscopy: Normal colonic mucosa to cecum, lymphocytic or collagenous colitis, moderate sized internal hemorrhoids 02/17/2019: EGD: Mild distal esophagitis/gastritis Hx of Present Illness This is a 43-year-old male with cannabis abuse, hernia repair surgery, here with 4 days of intractable nausea/multiple episodes of nonbilious/nonbloody vomiting. Patient also had subjective chills at home. Patient also had diffuse abdominal pain. He also reported constipation and his last bowel movement was 5 days ago. Patient was not able to keep anything down secondary to vomiting. Patient also smokes marijuana on a daily basis. Patient denied any recent travel or contact with sick people. Patient denied chest pain, palpitation, shortness of breath, diarrhea, hematemesis, hematochezia, loss of consciousness, numbness, tingling, speech difficulties, vision changes, or other constitutional symptoms. In the emergency room, patient was noted with a white count 14,900, BUN 35, creatinine 3.74. Abdominal CT showed mild bowel wall thickening in the descending and proximal sigmoid colon which could represent colitis, either infectious or inflammatory. There is also moderate stool seen in the ascending colon. Hospital Course 43 yo M w/daily cannabis use, hernia repair sx here w/ 4-5 days duration of intractable N/Vomiting/abd pain/chills/constipation found to have colitis.. Patient responded on IV antimicrobials. He was also noted with acute kidney injury secondary to colitis which was resolved with IV fluids. Patient was also noted with hyperparathyroidism likely secondary hyperparathyroidism with renal insufficiency. Patient then underwent EGD and colonoscopic exam which revealed mild gastritis/esophagitis, lymphocytic colitis and internal hemorrhoids. Otherwise unremarkable. Most likely colitis is caused by possible infectious source. Blood cultures negative. Stool culture grew coliform. Patient at this time with no leukocytosis or fevers. He is tolerating a diet very well. He is eager to be discharged. Patient's renal function stable. His PTH level started to trend down. Case was reviewed by dinkey operator slate. Patient will be dis charged on Cipro and Flagyl to complete course. Approximately 60-minute was spent on coordinating the discharge on this patient. Patient was seen in collaboration with Dr. Medina. Home Meds Active Scripts Pantoprazole* (Pantoprazole*) 40 Mg Tablet., 40 MG PO DAILY@06, #30 TAB Prov:LENTZ,MILAGROS V. SHIM PLUG CUTTER 02/18/19 Metronidazole* (Metronidazole*) 500 Mg Tablet, 500 MG PO Q8, #21 TAB Prov:LENTZ,MILAGROS V. SHIM PLUG CUTTER 02/18/19 Ciprofloxacin Hcl* (Ciprofloxacin Hcl*) 500 Mg Tablet, 500 MG PO BID, #14 TAB Prov:LENTZ,MILAGROS V. SHIM PLUG CUTTER 02/18/19 Follow-up Plan Follow-up with primary care physician in 1 week. Follow-up with 's office to obtain biopsy result. Dwaine Hall MD Specialty Gastroenterology Comments Office Address [id number] [place] [address] Office Eat a high-fiber diet. Primary Care Provider Care Physician No Primary Pending Labs Laboratory Tests Test 02/18/19 06:19 White Blood Count 10.4 10^3/ul (4.8-10.8) Red Blood Count 3.68 10^6/ul (4.70-6.10) Hemoglobin 10.4 g/dl (14.0-18.0) Hematocrit 30.6 % (42.0-52.0) Mean Corpuscular Volume 83.2 fl (82.0-101.0) Mean Corpuscular Hemoglobin 28.3 pg (29.0-33.0) Mean Corpuscular Hemoglobin Concent 34.0 g/dl (32.0-37.0) Red Cell Distribution Width 13.8 % (11.5-14.5) Platelet Count 256 10^3/UL (140-415) Mean Platelet Volume 9.5 fl (7.4-10.4) Immature Granulocytes % 0.500 % (0.001-0.429) Neutrophils % 63.5 % (39.0-77.0) Lymphocytes % 21.9 % (15.0-51.0) Monocytes % 11.6 % (0.0-11.0) Eosinophils % 2.3 % (0.0-7.0) Basophils % 0.2 % (0.0-2.0) Nucleated Red Blood Cells % 0.0 /100WBC (0.0-0.0) Immature Granulocytes # 0.050 10^3/ul (0.0-0.031) Neutrophils # 6.6 10^3/ul (1.6-7.5) Lymphocytes # 2.3 10^3/ul (0.8-2.9) Monocytes # 1.2 10^3/ul (0.3-0.9) Eosinophils # 0.2 10^3/ul (0.0-0.5) Basophils # 0.0 10^3/ul (0.0-0.1) Nucleated Red Blood Cells # 0.0 10^3/ul (0.0-0.0) Sodium Level 135 mmol/L (135-144) Potassium Level 3.0 mmol/L (3.5-5.1) Chloride Level 98 mmol/L (97-110) Carbon Dioxide Level 28 mmol/L (21-31) Anion Gap 9 (5-13) Blood Urea Nitrogen 8 mg/dl (7-20) Creatinine 0.77 mg/dl (0.61-1.24) Est Glomerular Filtrat Rate mL/min > 60 mL/min (>60) Glucose Level 87 mg/dl (70-220) Calcium Level 8.2 mg/dl (8.4-10.2) Phosphorus Level 1.7 mg/dl (2.5-4.9) Magnesium Level 1.7 mg/dl (1.7-2.5) Parathyroid Hormone (Intact) 94.0 pg/ml (7.5-53.5) MILAGROS LENTZ V. SHIM PLUG CUTTER Feb 18, 2019 13:02
[2019-02-18] MEDS ORDERED: MAGNESIUM SULFATE 1 GM/D5W 100 ML IVPB ONE (14:30)
== END 2019-02-18 16:10 | disposition home or self-care (01) | DRG 391 ==
LOC: E/R 01:36 → TEL 05:37
PROVIDERS: ADMIT Internal Medicine; ATTEND Internal Medicine
PROC: 0DBF8ZX Excision of Right Large Intestine, Via Natural or Artificial Opening Endoscopic, Diagnostic (ICD-10-PCS; 2019-02-17)
PROC: 0DB68ZX Excision of Stomach, Via Natural or Artificial Opening Endoscopic, Diagnostic (ICD-10-PCS; principal; 2019-02-17 19:00)
PROC: 0DBG8ZX Excision of Left Large Intestine, Via Natural or Artificial Opening Endoscopic, Diagnostic (ICD-10-PCS; 2019-02-17 19:00)
DX: A09 Infectious gastroenteritis and colitis, unspecified (principal); R65.11 Systemic inflammatory response syndrome (SIRS) of non-infectious origin with acute organ dysfunction; E87.2 Acidosis; N25.81 Secondary hyperparathyroidism of renal origin; E86.0 Dehydration; F12.90 Cannabis use, unspecified, uncomplicated; R63.4 Abnormal weight loss; Z68.22 Body mass index [BMI] 22.0-22.9, adult; E83.9 Disorder of mineral metabolism, unspecified; E87.6 Hypokalemia; D64.9 Anemia, unspecified; R00.0 Tachycardia, unspecified; K20.9 Esophagitis, unspecified; K29.70 Gastritis, unspecified, without bleeding; K64.8 Other hemorrhoids
CPT/HCPCS: 36415; 74176; 76775; 80048; 80053; 82306; 82330; 82652; 83735; 83970; 84100; 85025; 85610; 85651; 86021; 86140; 87045; 88305; 93005; 96374; 96375; 96376; J0295; J0360; J1170; J1630; J2270; J2405; J3475; J7030

== ENCOUNTER 2019-06-20 16:29 | Inpatient (IN) | payer MEDICAID ==
[~2019-06-20] VITALS: Ht 175.3 cm; Wt 50.3 kg
[~2019-06-20 16:29] MED LIST: DULO30CA45 PO; FOLI-49 PO; METO10TA3 PO; METO10TA92 PO; METO5TAB2 PO; PANT40TA3 PO
[2019-06-20] MEDS ORDERED: ONDANSETRON 4 MG INJ IV STA ×2 (17:27→19:49)
[2019-06-20] MEDS ORDERED: SOD CHLORIDE 0.9% 1,000 ML IV STA ×2 (17:27→19:41)
[2019-06-20] MEDS ORDERED: HALOPERIDOL 5 MG INJ IV ONE (17:30)
[2019-06-20] MEDS ORDERED: morphine 2 MG INJ IV STA (17:49)
[2019-06-20] MEDS ORDERED: ONDANSETRON 4 MG INJ IV PRN (19:00)
[2019-06-20] MEDS ORDERED: ACETAMINOPHEN 325 MG TAB PO PRN (19:00)
[2019-06-20] MEDS ORDERED: morphine 4 MG/ML VIAL IV STA (19:49)
[2019-06-20 23:33] VITALS: BP 149/96; PULSE 103; RESP 18
[2019-06-20 23:53] VITALS: Ht 175.3 cm; Wt 50.3 kg
[2019-06-21] MEDS ORDERED: NACL 0.9% 3 ML SYG IV SCH
[2019-06-21] MEDS ORDERED: ALBUTEROL/IPRATROPIUM (NEB) 3 ML AMP HHN PRN
[2019-06-21] MEDS: morphine 2 MG INJ IV PRN ×3 (00:30→19:21)
[2019-06-21] MEDS: DEXTROSE 5%-0.45% NACL 1,000 ML IV SCH ×4 (00:32→21:43)
[2019-06-21] MEDS ORDERED: CEFTRIAXONE 1 GM/50 ML (PMX) 50 ML IVPB SCH ×2 (02:00→07:30)
[2019-06-21 02:21] VITALS: BP 114/84; PULSE 84; RESP 18
[2019-06-21] MEDS: CEFTRIAXONE 1 GM/50 ML (PMX) 50 ML IVPB SCH (05:31)
[2019-06-21] MEDS ORDERED: PANTOPRAZOLE 40 MG INJ IV SCH (06:00)
[2019-06-21 08:15] VITALS: BP 95/61; PULSE 69; RESP 16
[2019-06-21] MEDS: HEPARIN 5,000 UNIT/1 ML VIAL SC SCH ×2 (08:44→21:42)
[2019-06-21] MEDS ORDERED: POTASSIUM CHLORIDE (SR) 20 MEQ TAB PO STA (08:52)
[2019-06-21 14:09] VITALS: BP 103/59; PULSE 85; RESP 18
[2019-06-21 19:55] VITALS: BP 91/52; PULSE 76; RESP 18
[2019-06-22] MEDS: morphine 2 MG INJ IV PRN ×6 (00:40→22:32)
[2019-06-22 01:33] VITALS: BP 113/72; PULSE 71; RESP 17
[2019-06-22] MEDS: ONDANSETRON 4 MG INJ IV PRN ×2 (05:07→14:20)
[2019-06-22] MEDS: CEFTRIAXONE 1 GM/50 ML (PMX) 50 ML IVPB SCH (05:15)
[2019-06-22] MEDS: PANTOPRAZOLE (EC) 40 MG TAB PO SCH (06:00)
[2019-06-22] MEDS ORDERED: morphine 4 MG/ML VIAL IV STA (06:33)
[2019-06-22] MEDS ORDERED: METOCLOPRAMIDE 10 MG INJ IV ONE (06:40)
[2019-06-22] MEDS: DEXTROSE 5%-0.45% NACL 1,000 ML IV SCH ×2 (06:52→16:07)
[2019-06-22] MEDS: HEPARIN 5,000 UNIT/1 ML VIAL SC SCH ×2 (08:13→21:05)
[2019-06-22 14:45] VITALS: BP 147/85; PULSE 94; RESP 18
[2019-06-22] MEDS: PROCHLORPERAZINE 10 MG INJ IV PRN (18:06)
[2019-06-22 20:16] VITALS: BP 138/79; PULSE 94; RESP 18
[2019-06-23] MEDS: DEXTROSE 5%-0.45% NACL 1,000 ML IV SCH ×3 (00:51→20:27)
[2019-06-23] MEDS: morphine 2 MG INJ IV PRN ×5 (03:25→22:22)
[2019-06-23 03:26] VITALS: BP 121/83; PULSE 78; RESP 18
[2019-06-23] MEDS: CEFTRIAXONE 1 GM/50 ML (PMX) 50 ML IVPB SCH (05:20)
[2019-06-23] MEDS: PANTOPRAZOLE (EC) 40 MG TAB PO SCH (05:21)
[2019-06-23 07:47] VITALS: BP 130/83; PULSE 98; RESP 18
[2019-06-23] MEDS ORDERED: MAGNESIUM SULFATE 2 GM/50 ML 50 ML IVPB ONE (09:00)
[2019-06-23] MEDS: POTASSIUM CHLORIDE 100 ML IVPB SCH ×3 (09:24→13:38)
[2019-06-23] MEDS: HEPARIN 5,000 UNIT/1 ML VIAL SC SCH ×2 (09:27→20:37)
[2019-06-23 13:06] VITALS: BP 117/70; PULSE 98; RESP 18
[2019-06-23 20:11] VITALS: BP 108/66; PULSE 75; RESP 18
[2019-06-24 02:07] VITALS: BP 139/77; PULSE 63; RESP 18
[2019-06-24] MEDS: morphine 2 MG INJ IV PRN ×3 (04:13→13:02)
[2019-06-24] MEDS: CEFTRIAXONE 1 GM/50 ML (PMX) 50 ML IVPB SCH (04:14)
[2019-06-24] MEDS: PROCHLORPERAZINE 10 MG INJ IV PRN (05:09)
[2019-06-24] MEDS: PANTOPRAZOLE (EC) 40 MG TAB PO SCH (05:22)
[2019-06-24 08:10] VITALS: BP 105/57; PULSE 67; RESP 18
[2019-06-24] MEDS: HEPARIN 5,000 UNIT/1 ML VIAL SC SCH (10:56)
[2019-06-24] MEDS: POTASSIUM CHLORIDE 100 ML IVPB SCH ×2 (10:59→12:45)
[2019-06-24] MEDS: DEXTROSE 5%-0.45% NACL 1,000 ML IV SCH (12:55)
[2019-06-24 15:14] VITALS: BP 98/55; PULSE 81; RESP 17
== END 2019-06-24 18:05 | disposition home or self-care (01) | DRG 393 ==
LOC: E/R 16:29 → 2NE 18:43
PROVIDERS: ADMIT Internal Medicine; ATTEND Internal Medicine
DX: R11.15 Cyclical vomiting syndrome unrelated to migraine (principal); E43 Unspecified severe protein-calorie malnutrition; Z68.1 Body mass index [BMI] 19.9 or less, adult; N39.0 Urinary tract infection, site not specified; N17.9 Acute kidney failure, unspecified; T40.7X5A Adverse effect of cannabis (derivatives), initial encounter; R11.2 Nausea with vomiting, unspecified; R62.7 Adult failure to thrive; R10.84 Generalized abdominal pain; E86.0 Dehydration; F17.200 Nicotine dependence, unspecified, uncomplicated; E21.1 Secondary hyperparathyroidism, not elsewhere classified; E87.6 Hypokalemia; K29.50 Unspecified chronic gastritis without bleeding; K20.9 Esophagitis, unspecified; Y92.89 Other specified places as the place of occurrence of the external cause
CPT/HCPCS: 36415; 71045; 74176; 78264; 80048; 80053; 81001; 83690; 83735; 84100; 85025; 86703; 96361; 96374; 96375; A9541; C9113; J0696; J0780; J1630; J1644; J2270; J2405; J2765; J3475; J3480; J7030; J7042